=== PATIENT | male | born 1990 | race African-American/Black ===

== ENCOUNTER 2017-01-14 03:00 | Emergency (ER) | payer SELFPAY ==
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
== END 2017-01-14 04:15 | disposition home or self-care (01) ==
LOC: MADERS 03:00
DX: S01.01XA Laceration without foreign body of scalp, initial encounter (principal); Z87.891 Personal history of nicotine dependence; Y00.XXXA Assault by blunt object, initial encounter
CPT/HCPCS: 12001; 70450

== ENCOUNTER 2017-01-17 13:26 | Emergency (ER) | payer SELFPAY | END 2017-01-17 14:25 | disposition home or self-care (01) | LOC: MADERS 13:26 | DX: H10.9 Unspecified conjunctivitis (principal); B35.6 Tinea cruris; Z87.891 Personal history of nicotine dependence | CPT/HCPCS: 36416; 99283 ==

== ENCOUNTER 2017-01-23 19:36 | Emergency (ER) | payer SELFPAY | END 2017-01-23 20:40 | disposition home or self-care (01) | LOC: MADERS 19:36 | DX: S01.01XD Laceration without foreign body of scalp, subsequent encounter (principal); F17.210 Nicotine dependence, cigarettes, uncomplicated; X58.XXXD Exposure to other specified factors, subsequent encounter ==

== ENCOUNTER 2019-09-01 23:58 | Emergency (ER) | payer BC, SELFPAY | END 2019-09-02 00:35 | disposition home or self-care (01) | LOC: MADERS 23:58 | DX: B30.9 Viral conjunctivitis, unspecified (principal); J06.9 Acute upper respiratory infection, unspecified; F17.210 Nicotine dependence, cigarettes, uncomplicated | CPT/HCPCS: 99283 ==